=== PATIENT | male | born 1965 | race Asian ===

== ENCOUNTER 2020-08-22 05:42 | Day surgery (SDC) | payer BC ==
[2020-08-22] VITALS (7 sets, daily range): BP systolic 124–133; BP diastolic 74–84; PULSE 68–91; TEMP 97.9–98.7
[~2020-08-22] VITALS: Ht 172.7 cm; Wt 75.8 kg
[2020-08-22] MEDS ORDERED: ULTRAM 50MG TAB50 MG PO (09:25)
--- NOTE | 2020-08-22 09:52 | NUR ---
Patient returns to room 8 per cart from PACU accompanied by Shannon LAGUNA and is awake and alert. Temp 97.7 and room air sats 95%. IV fluids infusing and site is free of redness. Abdominal incisions x3 on abdomen clean and dry and covered with rubio set. Patient denies pain or nausea and is sipping on orange juice. Siderails up x2 and call light in reach.
--- NOTE | 2020-08-22 10:07 | NUR ---
Tolerated orange juice and denies nausea or pain.
--- NOTE | 2020-08-22 10:22 | NUR ---
Resting with eyes closed when not disturbed.
--- NOTE | 2020-08-22 10:37 | NUR ---
Patient continues to rest without complaints.
--- NOTE | 2020-08-22 10:52 | NUR ---
Eating muffin and drinking coffee and water. Denies pain or nausea.
--- NOTE | 2020-08-22 11:10 | NUR ---
Assisted up to the bathroom and is able to void and returns to room. Gait steady.
--- NOTE | 2020-08-22 11:15 | NUR ---
IV discontinued and site is free of redness. Patient dresses self. Given dismissal instructions and voices understanding of these. Instructed that Ultram script was sent to [facility]. Provided follow up appointment date and time.
--- NOTE | 2020-08-22 11:35 | NUR ---
Patient dismissed to home driven by spouse and taken to the front door per wheelchair by this RN and assisted into vehicle. Dismissal instructions in hand.
== END 2020-08-22 11:35 | disposition home or self-care (01) ==
LOC: SDCO 05:42
DX: K40.20 Bilateral inguinal hernia, without obstruction or gangrene, not specified as recurrent (principal); Z20.828 Contact with and (suspected) exposure to other viral communicable diseases
CPT/HCPCS: C1781; J0690; J1100; J1885; J2250; J2405; J2704; J3010; J7120

== ENCOUNTER → 2023-06-18 | Outpatient (CLI) | payer BC ==
[~2023-06-18] MED LIST: ULTRAM 50MG TAB50 MG PO
== END ==
LOC: COL.RAD 10:51
DX: N18.2 Chronic kidney disease, stage 2 (mild) (principal)